=== PATIENT | male | born 1950 | race Caucasian/White ===

== ENCOUNTER 2022-09-15 09:56 | Outpatient (OUT) | payer MEDICARE, SELFPAY | END 2022-09-15 09:57 | disposition home or self-care (01) | LOC: SLEEP 09:56 | PROVIDERS: PCP Internal Medicine; Visit Provider Internal Medicine | DX: G47.33 Obstructive sleep apnea (adult) (pediatric) (principal) | CPT/HCPCS: 95806 ==